=== PATIENT | male | born 1990 | race Caucasian/White ===

== ENCOUNTER 2024-04-26 22:15 | Emergency (ER) | payer OTHER, MEDICAID ==
[~2024-04-26] VITALS: Ht 170.2 cm; Wt 124.8 kg
[2024-04-27 00:10] VITALS: BP 130/85; PULSE 80; RESP 18; TEMP 98; O2SAT 98
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
== END 2024-04-27 01:20 | disposition home or self-care (01) ==
LOC: ER 22:15
DX: S46.911A Strain of unspecified muscle, fascia and tendon at shoulder and upper arm level, right arm, initial encounter (principal); S13.4XXA Sprain of ligaments of cervical spine, initial encounter; G44.309 Post-traumatic headache, unspecified, not intractable; V49.49XA Driver injured in collision with other motor vehicles in traffic accident, initial encounter; Y93.89 Activity, other specified; Y92.488 Other paved roadways as the place of occurrence of the external cause; Y99.8 Other external cause status
CPT/HCPCS: 72040